=== PATIENT | female | born 1990 | race African-American/Black ===

== ENCOUNTER 2019-08-02 12:53 | Outpatient (CLI) | payer OTHER, SELFPAY ==
[2019-08-02 14:54] LABS: Hepatitis B Surface Antigen Negative (Negative)
[2019-08-02 15:12] LABS: Hepatitis C Virus Antibody Negative (Negative)
[2019-08-03 09:31] LABS: Rapid Plasma Reagin Non-Reactive (NonReactive)
[2019-08-03 11:07] LABS: HIV 1/2 Ab P24 Ag Result Negative (Negative)
[2019-08-05 15:42] LABS: HSV 1 IgM Screen Negative (Negative); HSV 2 IgM Screen Negative (Negative)
== END 2019-08-02 12:54 | disposition home or self-care (01) ==
PROVIDERS: PCP Obstetrics & Gynecology; Visit Provider Obstetrics & Gynecology
DX: Z20.2 Contact with and (suspected) exposure to infections with a predominantly sexual mode of transmission (principal)
CPT/HCPCS: 36415; 86592; 86695; 86696; 86703; 86803; 87340; G0432